=== PATIENT | male | born 1945 | race Caucasian/White ===

== ENCOUNTER 2019-10-14 13:50 | Emergency (ER) | payer MEDICARE ==
[~2019-10-14] VITALS: Ht 182.9 cm; Wt 104.5 kg
[~2019-10-14 13:50] MED LIST: ALLOPURINOL100 MG PO; ALPRAZOLAM0.5 MG PO; AMLOPIDINE; ASPIR-LOW81 MG PO; ASPIRIN 32325 MG/TAB PO; CATAPRES; CATAPRES 0.1MG0.1 MG PO; CATAPRES-T0.2 MG/24 TD; CENTRUM SILVER1 TA1 PO; CIPRO500 MG PO; CORDARONE200 MG PO; COUMADIN 77.5 MG/TAB PO; COZAAR 25MG25 MG/TAB PO; CYMBALTA 60MG60 MG PO; FLOMAX 0.40.4 MG/CAP PO; GABAPENTIN300 M1 PO; LORTAB 5/500 501 TAB PO; MASON NATURAL1000 MG PO; METRONIDAZOLE500 MG PO; MVI; NORVASC; SOTALOL; TESTOSTERONE SHOT PO; UNABLE; VITAMIN C1 TAB PO; VITAMIN C500 MG PO; VITAMIN D31000 IU PO; XANAX 0.5MG0.5 MG PO; XANAX0.5 MG PO
[2019-10-14 13:55] VITALS: TEMP 98
[2019-10-14 16:10] VITALS: BP 129/79; PULSE 92
== END 2019-10-14 16:13 | disposition home or self-care (01) ==
LOC: COL.ER 13:50
DX: S09.90XA Unspecified injury of head, initial encounter (principal); S01.81XA Laceration without foreign body of other part of head, initial encounter; S01.111A Laceration without foreign body of right eyelid and periocular area, initial encounter; I48.91 Unspecified atrial fibrillation; E78.5 Hyperlipidemia, unspecified; I10 Essential (primary) hypertension; Z79.82 Long term (current) use of aspirin; M10.9 Gout, unspecified; Z23 Encounter for immunization; Z79.01 Long term (current) use of anticoagulants; W22.8XXA Striking against or struck by other objects, initial encounter; Y92.009 Unspecified place in unspecified non-institutional (private) residence as the place of occurrence of the external cause

== ENCOUNTER → 2019-10-20 | Outpatient (CLI) | payer MEDICARE, OTHER ==
[2019-10-20 09:55] VITALS: BP 118/66; PULSE 87; TEMP 98
== END ==
LOC: COL.ER 09:28
DX: S01.111D Laceration without foreign body of right eyelid and periocular area, subsequent encounter (principal); X58.XXXD Exposure to other specified factors, subsequent encounter

== ENCOUNTER → 2020-02-09 | Outpatient (CLI) | payer OTHER | LOC: COL.RAD 02-08 13:30 | DX: R51 Headache (principal) ==

== ENCOUNTER 2020-06-07 12:58 | Day surgery (SDC) | payer MEDICARE, OTHER ==
[~2020-06-07] VITALS: Ht 182.9 cm; Wt 102.6 kg
[2020-06-07 15:29] VITALS: BP 134/70; PULSE 73; TEMP 98.2
[2020-06-07] MEDS ORDERED: NESINA25 PO (15:33)
[2020-06-07] MEDS ORDERED: ELIQUIS 5MG PO (15:33)
[2020-06-07] MEDS ORDERED: ARTIFICIAL TEAR15 M7 OP (15:35)
[2020-06-07] MEDS ORDERED: LIPITOR 40MG TA40 MG PO (15:39)
[2020-06-07] MEDS ORDERED: PARCOPA 25/101 UDTAB NG (15:43)
[2020-06-07] MEDS ORDERED: KLONOPIN 0.5MG0.5 MG PO (15:44)
[2020-06-07] MEDS ORDERED: NEURONTIN300 MG/CAP PO (15:45)
[2020-06-07] MEDS ORDERED: HCTZ 25MG TAB25 MG PO (15:46)
[2020-06-07] MEDS ORDERED: LOPRESSOR 225 MG/TAB PO (15:47)
[2020-06-07] MEDS ORDERED: REQUIP 1MG T1 MG/TAB PO (15:48)
[2020-06-07] MEDS ORDERED: DESYREL 100MG100 MG PO (15:49)
[2020-06-07] MEDS ORDERED: ULTRAM 50MG TAB50 MG PO (15:50)
[2020-06-07] MEDS ORDERED: CYMBALTA 30MG30 MG PO (15:51)
[2020-06-07 17:05] VITALS: BP 142/95; PULSE 90; TEMP 98.5
--- NOTE | 2020-06-07 17:05 | NUR ---
PT TRANSPORTED PER CART TO BAY 8 ACCOMPANIED BY PACU STAFF. MONITORS REAPPLIED. VSS. PATIENT RESTING WITH EYES CLOSES. PATIENT DOES RESPOND TO QUESTIONS ASKED. AT BEDSIDE. VERBAL REPORT RECEIVED.
[2020-06-07 17:15] VITALS: BP 123/62; PULSE 92
--- NOTE | 2020-06-07 17:15 | NUR ---
VSS. PATIENT AWAKE. PATIENT DENIES PAIN AND NAUSEA. PATIENT AMBULATED WITH SLOW STEADY GAIT WITH 1 ASSIST TO THE BATHROOM. PATIENT VOIDS WITHOUT PROBLEMS. AT PATIENT SIDE ASSISTING BACK TO CART.
[2020-06-07 17:30] VITALS: BP 102/32; PULSE 91
--- NOTE | 2020-06-07 17:30 | NUR ---
PATIENT SITTING ON THE SIDE OF CART WITH AT BEDSIDE. PATIENT CONTINUES TO DENY DISCOMFORT AND NAUSEA.
[2020-06-07 17:45] VITALS: BP 135/71; PULSE 72
--- NOTE | 2020-06-07 17:45 | NUR ---
VSS ON ROOM AIR. PATIENT DRINKS SPRITE AND EAT MUFFIN WITHOUT PROBLEMS. PATIENT STATES HE IS READY TO GO HOME. DENIES DISCOMFORT AND NAUSEA. PATIENT DOES AMBULATE AGAIN TO BATHROOM AND VOIDS WITHOUT PROBLEMS. WITH STAND BY ASSIST. IV SITE DC'D WITH CATHETER TIP INTACT AND PRESSURE AND BANDAGE APPLIED. 1755 DISCHARGE INSTRUCTIONS GIVEN VERBAL AND DISCHARGE PACKET INFORMATION REVIEW. QUESTIONS ANSWERED AND PATIENT VOICED UNDERSTANDING. PAPERWORK SIGNED. PATIENT CHANGES INTO STREET CLOTHES. 1800 PATIENT DISCHARGED PER WHEEL CHAIR ACCOMPANIED BY [facility] POWER CUTTING MACHINE OPERATOR TO [facility].
== END 2020-06-07 18:00 | disposition home or self-care (01) ==
LOC: SDCO 12:58
DX: N21.0 Calculus in bladder (principal); N20.0 Calculus of kidney; E11.9 Type 2 diabetes mellitus without complications; I20.9 Angina pectoris, unspecified; I10 Essential (primary) hypertension; I49.9 Cardiac arrhythmia, unspecified; I48.20 Chronic atrial fibrillation, unspecified; G47.33 Obstructive sleep apnea (adult) (pediatric); F32.9 Major depressive disorder, single episode, unspecified; F40.240 Claustrophobia; Z79.82 Long term (current) use of aspirin; Z79.899 Other long term (current) drug therapy; Z88.8 Allergy status to other drugs, medicaments and biological substances; Z20.828 Contact with and (suspected) exposure to other viral communicable diseases; Z79.84 Long term (current) use of oral hypoglycemic drugs; Z96.651 Presence of right artificial knee joint; Z87.891 Personal history of nicotine dependence
CPT/HCPCS: C1769; C1894; J0690; J2704; J3010; J7120; Q9967

== ENCOUNTER 2020-12-06 11:25 | Day surgery (SDC) | payer MEDICARE, OTHER ==
[~2020-12-06] VITALS: Ht 182.9 cm; Wt 107.3 kg
[~2020-12-06 11:25] MED LIST changes: +ARTIFICIAL TEAR15 M7 OP; +CYMBALTA 30MG30 MG PO; +DESYREL 100MG100 MG PO; +ELIQUIS 5MG PO; +HCTZ 25MG TAB25 MG PO; +KLONOPIN 0.5MG0.5 MG PO; +LIPITOR 40MG TA40 MG PO; +LOPRESSOR 225 MG/TAB PO; +NESINA25 PO; +NEURONTIN300 MG/CAP PO; +PARCOPA 25/101 UDTAB NG; +REQUIP 1MG T1 MG/TAB PO; +ULTRAM 50MG TAB50 MG PO
[2020-12-06] MEDS ORDERED: GLUCOPHAGE1000 MG PO (12:14)
[2020-12-06] MEDS ORDERED: ZANAFLEX CAPSULE4 MG PO (12:15)
[2020-12-06 12:35] VITALS: BP 138/74; PULSE 65; TEMP 97.9
[2020-12-06 17:55] VITALS: BP 144/70; PULSE 66
[2020-12-06 18:10] VITALS: BP 135/71; PULSE 75
[2020-12-06 18:25] VITALS: BP 136/70
[2020-12-06 18:33] VITALS: BP 132/67; PULSE 65; TEMP 98.3
--- NOTE | 2020-12-06 18:39 | NUR ---
Pt doing well since arriving from PACU. He is alert and oriented with no pain complaints. ADA diet tray ordered for him which he is eating at this time. VSS
--- NOTE | 2020-12-06 19:10 | NUR ---
Pt doing well. He has tolerated a general diet and has no complaints of pain. VSS and dressing CDI. Pt getting dressed at this time
--- NOTE | 2020-12-06 19:21 | NUR ---
IV removed from right hand. Discharge instructions given and reviewed with patient. Pt's stated that went over everything with her and she has no questions. Scripts given as well
--- NOTE | 2020-12-06 19:36 | NUR ---
Pt escorted out at this time via wheelchair
== END 2020-12-06 19:37 | disposition home or self-care (01) ==
LOC: SDCO 11:25 → SURG 16:03 → SDCO 19:37
DX: M23.222 Derangement of posterior horn of medial meniscus due to old tear or injury, left knee (principal); M94.262 Chondromalacia, left knee; M65.862 Other synovitis and tenosynovitis, left lower leg; M17.12 Unilateral primary osteoarthritis, left knee; M10.9 Gout, unspecified; G62.9 Polyneuropathy, unspecified; I10 Essential (primary) hypertension; I48.91 Unspecified atrial fibrillation; E78.5 Hyperlipidemia, unspecified; G47.33 Obstructive sleep apnea (adult) (pediatric); E11.9 Type 2 diabetes mellitus without complications; F41.9 Anxiety disorder, unspecified; Z79.899 Other long term (current) drug therapy; Z87.891 Personal history of nicotine dependence; Z99.89 Dependence on other enabling machines and devices; Z20.822 Contact with and (suspected) exposure to COVID-19; Z79.01 Long term (current) use of anticoagulants; Z88.8 Allergy status to other drugs, medicaments and biological substances; Z79.84 Long term (current) use of oral hypoglycemic drugs; Z83.3 Family history of diabetes mellitus
CPT/HCPCS: OP; J0690; J1885; J2405; J2704; J3010; J7030

== ENCOUNTER 2022-04-04 11:53 | Emergency (ER) | payer MEDICARE, OTHER ==
[~2022-04-04] VITALS: Ht 182.9 cm; Wt 95.5 kg
[~2022-04-04 11:53] MED LIST changes: +GLUCOPHAGE1000 MG PO; +ZANAFLEX CAPSULE4 MG PO
[2022-04-04 12:24] VITALS: BP 133/69; TEMP 98.1
[2022-04-04 14:00] VITALS: PULSE 65
== END 2022-04-04 14:00 | disposition home or self-care (01) ==
LOC: COL.ER 11:53
DX: S09.90XA Unspecified injury of head, initial encounter (principal); S00.03XA Contusion of scalp, initial encounter; I48.91 Unspecified atrial fibrillation; Z79.01 Long term (current) use of anticoagulants; W11.XXXA Fall on and from ladder, initial encounter

== ENCOUNTER → 2024-03-04 | Outpatient (CLI) | payer OTHER ==
[~2024-03-04] MED LIST changes: -COZAAR 25MG25 MG/TAB PO; +COZAAR100 MG PO; -PARCOPA 25/101 UDTAB NG; +PARCOPA 25/101 UDTAB PO; -VITAMIN C1 TAB PO
== END ==
LOC: MHCPAIN 08:20
DX: M47.817 Spondylosis without myelopathy or radiculopathy, lumbosacral region (principal); M54.50 Low back pain, unspecified

== ENCOUNTER → 2024-03-09 | Outpatient (CLI) | payer OTHER | LOC: MHCPAIN 08:35 | DX: M47.817 Spondylosis without myelopathy or radiculopathy, lumbosacral region (principal); M54.50 Low back pain, unspecified; I10 Essential (primary) hypertension; I48.91 Unspecified atrial fibrillation; Z79.01 Long term (current) use of anticoagulants; Z96.653 Presence of artificial knee joint, bilateral | CPT/HCPCS: G0463 ==

== ENCOUNTER → 2024-04-22 | Outpatient (CLI) | payer OTHER ==
[~2024-04-22] MED LIST changes: +Lidocaine PF 1% (10 MG/ML) 5 ML VIAL ONE; +Lidocaine PF 2% (20 MG/ML) 5 ML VIAL ONE; +Midazolam 2 MG/2 ML VIAL ONE; +fentaNYL 50 MCG/ML 2 ML VIAL ONE
== END ==
LOC: MHCPAIN 08:07
DX: M47.817 Spondylosis without myelopathy or radiculopathy, lumbosacral region (principal); M54.50 Low back pain, unspecified
CPT/HCPCS: J0665; J2250; J3010

== ENCOUNTER → 2024-08-16 | Outpatient (CLI) | payer OTHER ==
[~2024-08-16] MED LIST changes: +Iohexol 300 - 10 ML VIAL ONE; -Lidocaine PF 1% (10 MG/ML) 5 ML VIAL ONE; +Lidocaine PF 2% (20 MG/ML) 2 ML VIAL ONE; -Lidocaine PF 2% (20 MG/ML) 5 ML VIAL ONE; -Midazolam 2 MG/2 ML VIAL ONE; -fentaNYL 50 MCG/ML 2 ML VIAL ONE
== END ==
LOC: MHCPAIN 08:39
DX: M54.16 Radiculopathy, lumbar region (principal); M25.552 Pain in left hip; M25.562 Pain in left knee
CPT/HCPCS: J1100; Q9967